=== PATIENT | male | born 1970 | race Caucasian/White ===

== ENCOUNTER → 2020-09-15 | Emergency (ER) | payer OTHER ==
[~2020-09-15] VITALS: Ht 167.6 cm; Wt 72.6 kg
[~2020-09-15] MED LIST: KETO10TA2 PO; SYNTHROID112 MCG PO
== END | disposition home or self-care (01) ==
LOC: ER 10:53
DX: S62.396A Other fracture of fifth metacarpal bone, right hand, initial encounter for closed fracture (principal); W18.09XA Striking against other object with subsequent fall, initial encounter; Y93.89 Activity, other specified; Y92.89 Other specified places as the place of occurrence of the external cause; Y99.8 Other external cause status